=== PATIENT | female | born 1945 | race Caucasian/White ===

== ENCOUNTER 2018-03-23 07:20 | Day surgery (SDC) | payer MEDICARE ==
[2018-03-20 14:19] LABS: BASOPHILS % (AUTO) 0.6 % (0.0-5.0); EOSINOPHILS % (AUTO) 1.9 % (0.0-8.0); HEMATOCRIT 37.7 % (36-48); LYMPHOCYTES % (AUTO) 26.8 % (21.0-51.0); MEAN CORPUSCULAR HEMOGLOBIN 29.4 pg (27.0-33.0); MEAN CORPUSCULAR HGB CONC 33.8 g/dL (32.0-36.0); MONOCYTES % (AUTO) 8.7 % (3.0-13.0); PLATELET COUNT (AUTO) 247 K/uL (130-400); RED BLOOD CELL COUNT(AUTO) 4.33 MIL/uL (4.00-5.50); RED CELL DISTRIBUTION WIDTH 13.6 % (11.0-15.5); WHITE BLOOD COUNT (AUTO) 8.2 K/uL (4.8-10.8)
[2018-03-20 14:26] LABS: APPEARANCE,URINE CLOUDY (CLEAR); BILIRUBIN,URINE NEGATIVE (NEGATIVE); COLOR,URINE RED (YELLOW); GLUCOSE, URINE (UA) NEGATIVE (NEGATIVE); KETONES,URINE 5 mg/dL (NEGATIVE); LEUKOCYTE ESTERASE ,URINE SMALL (NEGATIVE); NITRATE,URINE NEGATIVE (NEGATIVE); OCCULT BLOOD,URINE LARGE (NEGATIVE); PROTEIN,URINE 100 (NEGATIVE); UROBILINOGEN,URINE 0.2 mg/dL (0.2-1.0)
[2018-03-20 14:30] LABS: CREATININE 1.2 mg/dL (0.5-1.5); POTASSIUM 3.7 mmol/L (3.5-5.1)
[2018-03-20 14:33] LABS: RBC,URINE TNTC /HPF (0-1)
[2018-03-20 14:34] LABS: BACTERIA,URINE Rare /HPF (None Seen); SQUAMOUS EPITHELIAL CELL,UR None Seen /HPF (0-2)
[2018-03-20 14:56] VITALS: BP 108/54
--- NOTE | 2018-03-21 12:08 | NUR ---
NOTE LATEST EKG HAS BEEN REVIEWED BY DR DURON , NO FURTHER ORDERS GIVEN
[2018-03-23] VITALS (18 sets, daily range): BP systolic 143–215; BP diastolic 74–107
[~2018-03-23] VITALS: Ht 167.6 cm; Wt 70.0 kg
[~2018-03-23 07:20] MED LIST: ASPI-555 PO; CARV6.25 PO; CHOL100044 PO; ENAL10TA PO; FLUT16H NASAL; GENTAMICIN 80 MG/NS 100 ML PB 100 ML IV SCH; ISOS30TA6 PO; LEVOFLOXACIN 500 MG/D5W 100 ML 100 ML IV SCH; LOVA20TA3 PO; SERT100T12 PO; UMEC1DIS IH
[2018-03-23] MEDS ORDERED: LACTATED RINGERS 1000ML 1,000 ML IV ONE (08:05)
[2018-03-23] MEDS ORDERED: LEVOFLOXACIN 500 MG/D5W 100 ML 100 ML ONE (08:05)
[2018-03-23] MEDS ORDERED: GENTAMICIN 80 MG/NS 100 ML PB 100 ML IV ONE (08:06)
[2018-03-23] MEDS ORDERED: GLYCOPYRROLATE 1 MG/5 ML SYRINGE ONE (08:24)
[2018-03-23] MEDS ORDERED: DEXAMETHASONE SOD PHOSPHATE 10MG/ML 1ML VIAL ONE (08:24)
[2018-03-23] MEDS ORDERED: MIDAZOLAM HCL 1 MG/ML 2ML VIAL ONE (08:24)
[2018-03-23] MEDS ORDERED: ONDANSETRON HCL 4 MG/2 ML VIAL ONE (08:24)
[2018-03-23] MEDS ORDERED: LIDOCAINE PF 2% 5ML ABBOJECT ONE ×2 (08:24→08:38)
[2018-03-23] MEDS ORDERED: NEOSTIGMINE 5MG/5ML SYR IV ONE (08:24)
[2018-03-23] MEDS ORDERED: ROCURONIUM 10MG/1ML SYR 10 MG/ML ML ONE (08:25)
[2018-03-23] MEDS ORDERED: PROPOFOL 10 MG/ML 20ML VIAL IV ONE (08:25)
[2018-03-23] MEDS ORDERED: FENTANYL CITRATE PF 50 MCG/1 ML 2ML VIAL ONE (08:25)
[2018-03-23] MEDS ORDERED: NITROGLYCERIN 1GM/1 INCH PACKET TD ONE (08:27)
[2018-03-23] MEDS ORDERED: METOPROLOL TARTRATE 1 MG/ML 5ML VIAL IV ONE (08:28)
--- NOTE | 2018-03-23 08:36 | NUR ---
VALUABLES: CLOTHING AND GLASSES GIVEN TO DAUGHTER REBECCA NASCIMENTO. NO OTHER VALUABLES BROUGHT TO HOSPITAL.
[2018-03-23] MEDS ORDERED: IOHEXOL-350 50ML VIAL IV ONE (08:53)
[2018-03-23] MEDS ORDERED: PHENYLEPHRINE HCL 10 MG/ML 1ML VIAL IV ONE (08:57)
[2018-03-23] MEDS ORDERED: HYDRALAZINE HCL 20 MG/ML VIAL ONE (09:48)
--- NOTE | 2018-03-23 10:40 | NUR ---
POSTOP received pt from [facility], s/p left ureteroscopy left stent placement left lithotripsy, opsite with string attached to mons-pubis dry and intact . pt /family instructed to keep intact, not to pull or remove at all. vs stable on arrival. pt awake and alert in bed, denies any pain or discomforts will continue to monitor.
[2018-03-23] MEDS ORDERED: HYDROCODONE/ACETAMINOPHEN 5/325 MG TAB PO PRN ×2 (11:15→11:30)
--- NOTE | 2018-03-23 11:23 | NUR ---
void pt got up to restroom and voided, small amount of bleeding noted to urine.
--- NOTE | 2018-03-23 11:24 | NUR ---
dc dc intructions given to pt /pt daughter with rx, instructed to f/u with dr. veliz and to keep string attached in place to mons-pubis area. not to pull at all. pt voided , denies any discomforts. also instructed to start cipro on tuesday, and other medications today. pt getting dress will be discharge once ready.
[2018-03-23] MEDS ORDERED: KETOROLAC TROMETHAMINE 15MG/ML IV PRN (11:30)
--- NOTE | 2018-03-23 11:45 | NUR ---
dc pt dc home via wc,no distress noted. denied any pain or discomforts.
== END 2018-03-23 11:45 | disposition home or self-care (01) ==
LOC: DAH 07:20
PROVIDERS: ATTEND Urology
DX: N20.1 Calculus of ureter (principal); I10 Essential (primary) hypertension; J44.9 Chronic obstructive pulmonary disease, unspecified; I48.91 Unspecified atrial fibrillation; Z98.890 Other specified postprocedural states; Z90.710 Acquired absence of both cervix and uterus; Z98.49 Cataract extraction status, unspecified eye; I21.3 ST elevation (STEMI) myocardial infarction of unspecified site
CPT/HCPCS: 36415; 52356; 71045; 76000; 80048; 81001; 85025; 87088; 96365; A4354; A4358; A4600; A4649; A4930; A6207; C1758; C1769; C2617; J0360; J1100; J1580; J1956; J2001 ×2; J2250; J2370; J2405; J2704; J2710; J3010; J3490 ×2; J7120 ×2; Q9967

== ENCOUNTER 2018-05-30 06:27 | Day surgery (SDC) | payer MEDICARE ==
[~2018-05-30] VITALS: Ht 170.2 cm; Wt 70.7 kg
[~2018-05-30 06:27] MED LIST changes: +FLUT1AER IH; -GENTAMICIN 80 MG/NS 100 ML PB 100 ML IV SCH; -LEVOFLOXACIN 500 MG/D5W 100 ML 100 ML IV SCH; +SODIUM CHLORIDE 0.9% 1000ML 1,000 ML IV ONE; -UMEC1DIS IH
[2018-05-30 07:07] VITALS: BP 186/83
[2018-05-30] MEDS ORDERED: PROPOFOL 10 MG/ML 20ML VIAL IV ONE (08:15)
[2018-05-30 08:44] VITALS: BP 127/89
[2018-05-30 08:49] VITALS: BP 128/56
[2018-05-30 08:54] VITALS: BP 131/53
[2018-05-30 08:59] VITALS: BP 135/63
[2018-05-30 09:05] VITALS: BP 144/67
== END 2018-05-30 09:17 | disposition home or self-care (01) ==
LOC: DAH 06:27 → ENDO 06:27
PROVIDERS: ATTEND Internal Medicine
DX: K57.30 Diverticulosis of large intestine without perforation or abscess without bleeding (principal); K31.7 Polyp of stomach and duodenum; K44.9 Diaphragmatic hernia without obstruction or gangrene; K22.8 Other specified diseases of esophagus; K29.50 Unspecified chronic gastritis without bleeding; E78.5 Hyperlipidemia, unspecified; I10 Essential (primary) hypertension; J44.9 Chronic obstructive pulmonary disease, unspecified; Z86.73 Personal history of transient ischemic attack (TIA), and cerebral infarction without residual deficits; F41.9 Anxiety disorder, unspecified; F32.9 Major depressive disorder, single episode, unspecified; M19.90 Unspecified osteoarthritis, unspecified site; Z98.890 Other specified postprocedural states; I21.3 ST elevation (STEMI) myocardial infarction of unspecified site; I48.91 Unspecified atrial fibrillation; Z79.899 Other long term (current) drug therapy; Z98.49 Cataract extraction status, unspecified eye; Z90.710 Acquired absence of both cervix and uterus; Z88.8 Allergy status to other drugs, medicaments and biological substances; K56.2 Volvulus
CPT/HCPCS: 43239; 45380; 88305; 93005; A4606; J2704; J7030; 43236

== ENCOUNTER → 2018-06-16 | Outpatient (CLI) | payer MEDICARE ==
[~2018-06-16] MED LIST changes: -SODIUM CHLORIDE 0.9% 1000ML 1,000 ML IV ONE
== END | disposition home or self-care (01) ==
LOC: RAH 08:42
PROVIDERS: ATTEND Internal Medicine Gastroenterology
DX: K57.30 Diverticulosis of large intestine without perforation or abscess without bleeding (principal)
CPT/HCPCS: 74270

== ENCOUNTER → 2021-09-30 | Outpatient (CLI) | payer MEDICARE ==
[~2021-09-30] MED LIST changes: -ASPI-555 PO; +ASPI-556 PO; -ENAL10TA PO; +ENAL10TA18 PO; -ISOS30TA6 PO; +ISOS30TA92 PO; +SERT-440 PO; -SERT100T12 PO
== END | disposition home or self-care (01) ==
LOC: RAH 15:24
PROVIDERS: ATTEND Family Medicine
DX: M25.562 Pain in left knee (principal); M25.561 Pain in right knee

== ENCOUNTER → 2024-05-23 | Outpatient (CLI) | payer MEDICARE ==
[~2024-05-23] MED LIST changes: +ASPI-1443 PO; -ASPI-556 PO; +CARV3.12 PO; -CARV6.25 PO; -CHOL100044 PO; +DOCU-116 PO; +ENAL-89 PO; -ENAL10TA18 PO; -FLUT16H NASAL; -FLUT1AER IH; -ISOS30TA92 PO; -LOVA20TA3 PO; +PANT40TA55 PO; +POLY17PO4 PO
--- NOTE | 2024-05-23 14:27 | HMCIMG ---
COLON-GASTROGRAFIN REASON: IRON DEFICIENCY ANEMIA; diverticulosis of large intestine w/o perforation. COMPARISON: None TECHNIQUE: Gastrografin enema study was performed. FINDINGS: There is no obstruction to the retrograde passage of Gastrografin from rectum through cecum. There is extensive diverticulosis. No definite constricting lesion is seen. Evaluation for mass lesion is limited with Gastrografin enema study. IMPRESSION: No obstruction. Diverticulosis.
== END | disposition home or self-care (01) ==
LOC: RAH 08:53
PROVIDERS: ATTEND Internal Medicine
DX: K57.30 Diverticulosis of large intestine without perforation or abscess without bleeding (principal); D50.9 Iron deficiency anemia, unspecified
CPT/HCPCS: 74270; Q9958

== ENCOUNTER 2024-06-26 17:39 | Emergency (ER) | payer MEDICARE ==
[~2024-06-26] VITALS: Ht 165.1 cm; Wt 68.5 kg
--- NOTE | 2024-06-26 17:55 | EKG ---
[facility] Test Date: 2024-06-26 Test Time: 17:52:44 Pat Name: JULIO ALEXIS Department: [facility] Room: Gender: F Store Person: [id number] 1945 Requested By: HAILE BELLO Order Number: [id number] Reading MD: Darwin Veloz Measurements Intervals [place] Rate: 76 P: 67 MS: 175 QRS: -45 QRSD: 144 T: 182 QT: 426 QTc: 481 Interpretive Statements Sinus rhythm Probable left atrial enlargement Right bundle branch block LVH with IVCD and secondary repol abnrm Compared to ECG 04/21/2024 19:16:56 Intraventricular conduction delay now present Atrial premature complex(es) no longer present Electronically Signed On 06-26-2024 21:13:45 CDT by Darwin Veloz Please click the below link to view image of tracing.
[2024-06-26 18:28] LABS: BASOPHILS # (AUTO) 0.06 K/uL (0.00-0.20); BASOPHILS % (AUTO) 0.9 % (0.0-5.0); EOSINOPHILS # (AUTO) 0.17 K/uL (0.00-0.70); EOSINOPHILS % (AUTO) 2.5 % (0.0-8.0); HEMATOCRIT 29.3 % (36-48); IMMATURE GRANULOCYTE ABSOLUTE 0.01 K/uL (0-1); LYMPHOCYTES # (AUTO) 1.5 K/uL (1.0-4.8); LYMPHOCYTES % (AUTO) 22.4 % (21.0-51.0); MEAN CORPUSCULAR HEMOGLOBIN 21.7 pg (27.0-33.0); MEAN CORPUSCULAR VOLUME 77.5 fL (79-99); MONOCYTES # (AUTO) 0.7 K/uL (0.1-1.0); MONOCYTES % (AUTO) 10.9 % (3.0-13.0); NEUTROPHILS # (AUTO) 4.2 K/uL (1.8-7.7); NEUTROPHILS % (AUTO) 63.2 % (40.0-77.0); PLATELET COUNT (AUTO) 243 K/uL (130-400); RED BLOOD CELL COUNT(AUTO) 3.78 MIL/uL (4.00-5.50); RED CELL DISTRIBUTION WIDTH 18.9 % (11.0-15.5); WHITE BLOOD COUNT (AUTO) 6.7 K/uL (4.8-10.8)
--- NOTE | 2024-06-26 18:28 | HMCIMG ---
PORTABLE CHEST RADIOGRAPH INDICATION: sob COMPARISON: 04/19/2024 FINDINGS: Heart is enlarged. The pulmonary vascularity and akosua appear normal. Subcentimeter left upper lung calcified granulomas. No significant pleural effusion noted. No pneumothorax detected. IMPRESSION: Cardiomegaly without pulmonary vascular congestion. If patient's symptoms continue to persist, further evaluation with CT imaging is advised.
[2024-06-26 19:08] LABS: CREATININE 1.1 mg/dL (0.5-1.0); POTASSIUM 3.9 mmol/L (3.5-5.1)
[2024-06-26 19:22] LABS: B-TYPE NATRIURETIC PEPTIDE 326 pg/mL (0-100)
--- NOTE | 2024-06-26 19:31 | ERN ---
General Chief Complaint: Hypotension Stated Complaint: LOW BLOOD PRESSURE Time Seen by MD: 17:41 Time Seen by Midlevel: 17:41 Source: patient History of Present Illness Initial Comments The patient was an 78-year-old female with a past medical history of atrial fibrillation, COPD, hypertension, and PR presenting to the emergency department for evaluation of generalized body weakness and low blood pressure at home. According to the patient her blood pressure was 100/43 while she was laying down in bed. She does report having a history of anemia. She states that for the last couple of days she feels like she was going to pass out. Patient reports being O2 dependent on 2 L because of her past medical history of COPD. Allergies: Coded Allergies: cefaclor (Unverified Allergy, Intermediate, HIVES, 03/20/18) erythromycin base (Unverified Allergy, Intermediate, 03/20/18) Home Meds Active Scripts Pantoprazole Sodium (Protonix) 40 Mg Ectab, 1 TAB PO DAILY for 30 Days, #30 TAB 0 Refills Prov:BINU WEISS 04/22/24 Docusate Sodium (Colace) 100 Mg Capsule, 1 CAP PO BID PRN for CONSTIPATION for 15 Days, #30 CAP 0 Refills Prov:BINU WEISS 04/22/24 Polyethylene Glycol 3350 (Miralax) 17 Gram Powd.pack, 1 PACKET PO DAILY for constipation, #30 PACKET 0 Refills dissolve in water Prov:BINU WEISS 04/22/24 Reported Medications Carvedilol (Carvedilol) 3.125 Mg Tablet, 1 TAB PO BID for 30 Days, #60 TAB 0 Refills 04/19/24 Enalapril Maleate (Enalapril Maleate) 10 Mg Tablet, 1 TAB PO DAILY for 30 Days, #30 TAB 0 Refills 04/19/24 Aspirin (Aspirin EC) 81 Mg Tablet.dr, 81 MG PO DAILY, TAB 04/19/24 Sertraline HCl (Sertraline HCl) 100 Mg Tablet, 1 TAB PO DAILY for 30 Days, #30 TAB 0 Refills 04/19/24 Past Medical History Past Medical History: A-Fib, COPD, Hypertension, PR, TIA Past Surgical History: Hysterectomy, Tonsillectomy, Other Surgical History Other: CARPAL TUNNEL, EYE SURGERY ROS Dictation CONSTITUTIONAL: Negative except for HPI HEAD/FACE: Negative except for HPI EENT: Negative except for HPI RESPIRATORY: Negative except for HPI GASTROINTESTINAL/ABDOMINAL: Negative except for HPI GENITOURINARY: Negative except for HPI MUSCULOSKELETAL: Negative except for HPI INTEGUMENTARY: Negative except for HPI NEUROLOGICAL/PSYCH: Negative except for HPI HEMATOLOGIC/LYMPHATIC: Negative except for HPI All Systems Negative, Except as noted above. 13 point review of systems assessed and all negative except for above. Physical Exam Physical Exam Dictation Vital Signs reviewed General Appearance: Alert, oriented x 3, no acute distress, well developed, nourished. Head and Face: non-traumatic. Eyes: PERRL, pink conjunctivas, eyelid no trauma, anterior chamber with arcus senilis. Ears: Pinnas intact and no signs of trauma or erythema ear canals clear and no discharge TM no erythema Nose: No discharge, no bleeding. Oropharynx: Mouth normal, tongue pink, pharynx clear,no erythema, tonsils no exudates, no abscesses noted, mucous membrane moist Neck: Supple, non-tender, no thyromegaly, no masses, no JVD, no bruits Breast:Deferred Chest:No tenderness, no crepitus, no paradoxical movement, no retractions Lungs:Clear, well-ventilated, symmetric, no rales, no wheezing, no rhonchi, no stridor, good breath sounds bilaterally Heart: Regular rate, regular rhythm, no murmur, no gallops Vascular: no peripheral edema, Abdomen: Soft, positive bowel sounds, nondistended, no guarding, nontender, no rebound, no masses no hepatomegaly, no splenomegaly, no Jackson's sign, no hernias. Rectal: Deferred Genital: Deferred Neurological: Normal speech, motor function intact, sensory function intact Musculoskeletal: Neck nontender, full range of motion, back nontender, full range of motion, Extremities: nontender, full range of motion Skin: Color pink, dry, no turgor, no rash, no lacerations, no abrasions, no contusions. Lymphatic: Deferred Results Laboratory and Microbiology Lab and Micro Result Laboratory Tests Test 06/26/24 18:14 06/26/24 22:03 White Blood Count 6.7 K/uL (4.8-10.8) Red Blood Count 3.78 MIL/uL (4.00-5.50) L Hemoglobin 8.2 g/dL (12.0-16.0) L Hematocrit 29.3 % (36-48) L Mean Corpuscular Volume 77.5 fL (79-99) L Mean Corpuscular Hemoglobin 21.7 pg (27.0-33.0) L Mean Corpuscular Hemoglobin Concent 28.0 g/dL (32.0-36.0) L Red Cell Distribution Width 18.9 % (11.0-15.5) H Platelet Count 243 K/uL (130-400) Mean Platelet Volume 9.1 fL (7.5-10.5) Immature Granulocyte % (Auto) 0.1 % (0-1) Neutrophils (%) (Auto) 63.2 % (40.0-77.0) Lymphocytes (%) (Auto) 22.4 % (21.0-51.0) Monocytes (%) (Auto) 10.9 % (3.0-13.0) Eosinophils (%) (Auto) 2.5 % (0.0-8.0) Basophils (%) (Auto) 0.9 % (0.0-5.0) Neutrophils # (Auto) 4.2 K/uL (1.8-7.7) Lymphocytes # (Auto) 1.5 K/uL (1.0-4.8) Monocytes # (Auto) 0.7 K/uL (0.1-1.0) Eosinophils # (Auto) 0.17 K/uL (0.00-0.70) Basophils # (Auto) 0.06 K/uL (0.00-0.20) Absolute Immature Granulocyte (auto 0.01 K/uL (0-1) Nucleated Red Blood Cells 0.0 % (0.0-0.19) Red Blood Cell Morphology See comments Sodium Level 139 mmol/L (136-145) Potassium Level 3.9 mmol/L (3.5-5.1) Chloride Level 102 mmol/L (101-111) Carbon Dioxide Level 34 mmol/L (21-32) H Blood Urea Nitrogen 17 mg/dL (7-18) Creatinine 1.1 mg/dL (0.5-1.0) H Glomerular Filtration Rate Calc 51 mL/min (>90) Random Glucose 93 mg/dL (70-105) Total Calcium 8.9 mg/dL (8.5-10.1) Magnesium Level 2.00 mg/dL (1.80-2.40) Total Creatine Kinase 67 U/L (21-232) Troponin I High Sensitivity 65.0 ng/L (4-50) *H 62 ng/L (4-50) *H B-Type Natriuretic Peptide 326 pg/mL (0-100) H Labs Reviewed?: Yes MDM MDM: The patient was an 78-year-old female with a past medical history of atrial fibrillation, COPD, hypertension, and PR presenting to the emergency department for evaluation of generalized body weakness and low blood pressure at home. According to the patient her blood pressure was 100/43 while she was laying down in bed. She does report having a history of anemia. She states that for the last couple of days she feels like she was going to pass out. Patient reports being O2 dependent on 2 L because of her past medical history of COPD. Initial vital signs are remarkable for a temperature of 98.4 with a blood pressure of 119/60. O2 saturation is 97% on room air. ated. On physical examination the patient was on O2 on 2 L but states this is baseline for her. The remainder of her physical examination is reassuring. Cardiac workup was initiated. CBC shows no leukocytosis. There is chronic anemia with a hemoglobin of 8.2. When compared to previous hemoglobins her hemoglobin appears to be stable. Patient denies any rectal bleeding or vaginal bleeding at this time. Platelet count is normal at 243. Chemistries are unremarkable. Initial troponin is elevated at 65. However, when comparing to previous troponin it appears the patient's troponin is always elevated. On arrival the patient is specifically denied any chest pain. During her 5 hours stay in the emergency department she never reported chest pain, palpitations, or chest pressure. My initial plan was to admit the patient for further observation and management however the case was discussed with benchmark service who believes the patient does not meet criteria for admission. He states the troponin is chronically elevated and believes this is from the chronic anemia. I proceeded to get a repeat troponin which appears to be trending down. The patient was re-evaluated and states she was asymptomatic. She feels comfortable going home and would prefer to be discharged at this time. Differential diagnosis: Acute coronary syndrome, dehydration, electrolyte abnormality, anemia Rationale: Tests considered and ordered secondary to shared decision making in clude: Previous outside records reviewed: Old ER visits. Risk of complication and/or morbidity or mortality of patient management: None Medications-Per medication reconciliation Need for hospitalization: Patient does meet criteria for hospitalization. Need for emergency major/minor surgery: No There are no social concerns with this patient. Prescription drug management Prescriptions will include symptomatic care Patient's prior external medical records from other ER visits were reviewed by me as indicated. Prior testing and results from previous visits were reviewed. Prior tests were taken into account with medical decision making and resource utilization, independent historian/historians were used to obtain complete medical history. I independently interpreted the test that were performed, results were reviewed by me and considered findings on radiology if ordered. Medical management and examination interpretation discussions were had by me with other qualified healthcare professionals as indicated for the patient's care. ED Course Orders Procedure Category Date Status Time 12 Lead Ekg Tracing- EKG 06/26/24 Resulted Technical 17:45 Cbc With Differential LAB 06/26/24 Complete 17:45 Basic Metabolic Panel LAB 06/26/24 Complete 17:45 B-Type Natriuretic LAB 06/26/24 Complete Peptide 17:45 Magnesium LAB 06/26/24 Complete 17:45 Urinalysis Profile LAB 06/26/24 Logged 17:45 Chest 1vw RAD 06/26/24 Resulted 17:45 Type And Screen BBK 06/26/24 Complete 17:45 Cardiac Panel LAB 06/26/24 Complete 17:45 Troponin I High LAB 06/26/24 Complete Sensitivity 21:36 Vital Signs Date Time Temp Pulse Resp B/P (MAP) Pulse Ox O2 Delivery O2 Flow Rate FiO2 06/26/24 21:35 98.1 72 19 172/64 98 Nasal Cannula* 2 28 06/26/24 20:16 98.4 80 18 119/60 96 Nasal Cannula* 2 28 06/26/24 17:40 98.4 79 18 119/60 97 Room Air DX & DISP Disposition: Discharge Departure Impression: Primary Impression: Chronic anemia Additional Impression: Elevated troponin level not due myocardial infarction Condition: Stable Additional Instructions: Your blood work today is stable. Your initial troponin was elevated however your repeat troponin is trending down. This may be related to your chronic anemia. Your EKG does not show any evidence of a heart attack. Please follow up with your primary care doctor in 2-3 days for repeat evaluation. Referrals: MARY ZUNIGA MD (PCP) Time of Disposition: 23:34 I have reviewed the case, and I agree with, Diagnosis and Plan I performed the substantive portion of the visit. I have reviewed and personally made and approve the management plan that is documented in the note by myself or the ABY. I acknowledge for responsibility for the patient's management plan. HAILE BELLO Jun 26, 2024 19:31
--- NOTE | 2024-06-26 21:22 | NUR ---
PT CARE ASSUMED AT THIS TIME
[2024-06-26 23:48] VITALS: BP 171/62; PULSE 67; RESP 18; TEMP 98.1; O2SAT 97
== END 2024-06-26 23:58 | disposition home or self-care (01) ==
LOC: EDH 17:39
DX: D64.9 Anemia, unspecified (principal); R79.89 Other specified abnormal findings of blood chemistry; I25.2 Old myocardial infarction; I48.91 Unspecified atrial fibrillation; J44.9 Chronic obstructive pulmonary disease, unspecified; Z79.82 Long term (current) use of aspirin; Z79.899 Other long term (current) drug therapy; Z86.73 Personal history of transient ischemic attack (TIA), and cerebral infarction without residual deficits; Z88.1 Allergy status to other antibiotic agents; Z90.710 Acquired absence of both cervix and uterus; Z99.81 Dependence on supplemental oxygen
CPT/HCPCS: 36415; 71045; 80048; 82550; 83735; 83880; 84484; 85025; 86850; 86900; 86901; 93005; 99285

== ENCOUNTER → 2024-10-12 | Emergency (ER) | payer MEDICARE ==
[~2024-10-12] VITALS: Ht 165.1 cm; Wt 64.9 kg
[~2024-10-12] MED LIST changes: -DOCU-116 PO; +LEVO25CA5 PO; -PANT40TA55 PO; -POLY17PO4 PO
--- NOTE | 2024-10-12 15:28 | ERN ---
ED Note History of Present Illness Stated Complaint: WOUND CHECK Chief Complaint: Wound Check Time Seen by MD: 15:21 Dictation: PATIENT IS AN 79-YEAR-OLD FEMALE HERE COMPLAINING OF SEROSANGUINEOUS DRAINAGE FROM HER INCISION SITE TO HER LOWER ABDOMEN. SHE IS STATUS POST A COLON RESECTION FOR COLON MASS BY DR. WALTER GARRETT LAST WEEK. SHE DENIES FEVER CHILLS NAUSEA VOMITING. DRESSING IS IN PLACE WITH DRIED DRAINAGE NOTED EXTERNALLY. Allergies: Coded Allergies: cefaclor (Unverified Allergy, Intermediate, HIVES, 03/20/18) erythromycin base (Unverified Allergy, Intermediate, 03/20/18) Home Meds Reported Medications Levothyroxine Sodium (Levothyroxine) 25 Mcg Capsule, 1 CAP PO DAILY for 30 Days, #30 CAP 0 Refills 09/27/24 Carvedilol (Carvedilol) 3.125 Mg Tablet, 1 TAB PO BID for 30 Days, #60 TAB 0 Refills 04/19/24 Enalapril Maleate (Enalapril Maleate) 10 Mg Tablet, 1 TAB PO DAILY for 30 Days, #30 TAB 0 Refills 04/19/24 Aspirin (Aspirin EC) 81 Mg Tablet.dr, 81 MG PO DAILY, TAB 04/19/24 Sertraline HCl (Sertraline HCl) 100 Mg Tablet, 1 TAB PO DAILY for 30 Days, #30 TAB 0 Refills 04/19/24 Past Medical History Past Medical History: Cancer, Diverticulitis Surgical History: Other Surgical History Other: COLON RESECTION History: Not Applicable RN Note Reviewed/Agreed w/PFSH: Yes Review of System Dictation CONSTITUTIONAL: NEGATIVE EXCEPT FOR HPI HEAD/FACE: NEGATIVE EXCEPT FOR HPI EENT: NEGATIVE EXCEPT FOR HPI RESPIRATORY: NEGATIVE EXCEPT FOR HPI GASTROINTESTINAL/ABDOMINAL: NEGATIVE EXCEPT FOR HPI ABDOMINAL INCISION DRAINAGE GENITOURINARY: NEGATIVE EXCEPT FOR HPI MUSCULOSKELETAL: NEGATIVE EXCEPT FOR HPI INTEGUMENTARY: NEGATIVE EXCEPT FOR HPI NEUROLOGICAL/PSYCH: NEGATIVE EXCEPT FOR HPI HEMATOLOGIC/LYMPHATIC: NEGATIVE EXCEPT FOR HPI ALL SYSTEMS NEGATIVE, EXCEPT NOTED ABOVE. 13 POINT REVIEW OF SYSTEMS ASSESSED AND ALL NEGATIVE EXCEPT FOR ABOVE. Initial Vital Sign VS Vital Signs Date Time Temp Pulse Resp B/P (MAP) Pulse Ox O2 Delivery O2 Flow Rate FiO2 10/12/24 15:21 98.2 63 19 103/78 99 Nasal Cannula 2.0 10/12/24 16:10 28 Physical Exam Dictation VITAL SIGNS REVIEWED GENERAL APPEARANCE: ALERT, ORIENTED X 3, NO ACUTE DISTRESS, WELL DEVELOPED, NOURISHED. NO PAIN AT THIS TIME NO FEVER HEAD AND FACE: NON-TRAUMATIC. EYES: PERRL, PINK CONJUNCTIVAS, EYELID NO TRAUMA, ANTERIOR CHAMBER WITH ARCUS SENILIS. EARS: PINNAS INTACT AND NO SIGNS OF TRAUMA OR ERYTHEMA EAR CANALS CLEAR AND NO DISCHARGE TM NO ERYTHEMA NOSE: NO DISCHARGE, NO BLEEDING. OROPHARYNX: MOUTH NORMAL, TONGUE PINK, PHARYNX CLEAR,NO ERYTHEMA, TONSILS NO EXUDATES, NO ABSCESSES NOTED, MUCOUS MEMBRANE MOIST NECK: SUPPLE, NON-TENDER, NO THYROMEGALY, NO MASSES, NO JVD, NO BRUITS BREAST:DEFERRED CHEST:NO TENDERNESS, NO CREPITUS, NO PARADOXICAL MOVEMENT, NO RETRACTIONS LUNGS:CLEAR, WELL-VENTILATED, SYMMETRIC, NO RALES, NO WHEEZING, NO RHONCHI, NO STRIDOR, GOOD BREATH SOUNDS BILATERALLY HEART: REGULAR RATE, REGULAR RHYTHM, NO MURMUR, NO GALLOPS VASCULAR: NO PERIPHERAL EDEMA, ABDOMEN: SOFT, POSITIVE BOWEL SOUNDS, NONDISTENDED, NO GUARDING, NONTENDER, NO REBOUND, NO MASSES NO HEPATOMEGALY, NO SPLENOMEGALY, NO SAWANT'S SIGN, NO HERNIAS. 4 GRANULATING INCISIONS TO TRANSVERSE LOWER ABDOMEN. DISTAL INCISION WITH SCANT SEROSANGUINEOUS DRAINAGE NO INDURATION NO ERYTHEMA NO SWELLING NO FLUCTUANCE RECTAL: DEFERRED GENITAL: DEFERRED NEUROLOGICAL: NORMAL SPEECH, MOTOR FUNCTION INTACT, SENSORY FUNCTION INTACT MUSCULOSKELETAL: NECK NONTENDER, FULL RANGE OF MOTION, BACK NONTENDER, FULL RANGE OF MOTION, EXTREMITIES: NONTENDER, FULL RANGE OF MOTION SKIN: COLOR PINK, DRY, NO TURGOR, NO RASH, NO LACERATIONS, NO ABRASIONS, NO CONTUSIONS. LYMPHATIC: DEFERRED Results (Laboratory/Radiology) Labs Reviewed?: Yes ED Course ED Course Vital Signs Date Time Temp Pulse Resp B/P (MAP) Pulse Ox O2 Delivery O2 Flow Rate FiO2 10/12/24 16:10 97.9 69 17 153/91 100 Nasal Cannula* 2 28 10/12/24 15:21 98.2 63 19 103/78 99 Nasal Cannula 2.0 1715/SPOKE WITH DR. WALTER GARRETT COLORECTAL SURGERY REGARDING PATIENT. HE IS AWARE THE PATIENT IS AFEBRILE THERE IS NO DRAINAGE AT THIS TIME NO FEVER NO CHILLS NO ABDOMINAL PAIN NO FLUCTUANCE NO INDURATION. HE SAID OKAY TO DISCHARGED HOME AND HAVE PATIENT FOLLOW UP WITH HIM IN HIS OFFICE NEXT WEEK. THIS INFORMATION WAS RELAYED TO THE PATIENT AND HER DAUGHTER AT BEDSIDE. Medical Decision Making MDM MEDICAL DISCHARGE MAKING BASED ON PHYSICAL EXAMINATION, EVALUATION OF VITAL SIGNS AND CONSULTATION WITH COLORECTAL SURGEON PATIENT WILL BE DISCHARGED HOME AFTER EXAMINATION TO DISCUSSION WITH THE SURGEON SHE IS AWARE TO FOLLOW UP WITH HIM NEXT WEEK IN THE CLINIC RETURN TO THE EMERGENCY ROOM IF FEVER CHILLS NAUSEA VOMITING OR ACUTE ABDOMINAL PAIN DX & DISP Disposition: Discharge Departure Impression: Primary Impression: Surgical site reaction Additional Impression: Status post colon resection Condition: Stable Additional Instructions: FOLLOW-UP WITH PRIMARY CARE PROVIDER IN 1 TO 2 DAYS. TAKE MEDICATIONS DIRECTED HERE IN THE EMERGENCY ROOM. OKAY TO CONTINUE HOME MEDICATIONS UNLESS OTHERWISE DISCUSSED DURING YOUR VISIT IN THE EMERGENCY ROOM TODAY. RETURN TO YOUR NEAREST EMERGENCY ROOM IF SYMPTOMS WORSEN OR IF THERE IS NO IMPROVEMENT. CALL 911 IF YOU NEED IMMEDIATE ASSISTANCE. TAKE TYLENOL OR MOTRIN [id number] NEEDED AND IF NO CONTRAINDICATIONS ARE PRESENT. INCREASE ORAL HYDRATION. A WOUND CULTURE OR URINE CULTURE WAS ORDERED HERE IN THE EMERGENCY ROOM DEPARTMENT PLEASE FOLLOW-UP WITH PRIMARY CARE PROVIDER AND ADVISE THEM TO GET REPEAT PORTS FROM OUR FACILITY. IF YOU HAD ANY NAYA WRAP/SPLINTS THAT WERE APPLIED HERE, PLEASE DO NOT REMOVE THEM UNTIL YOU SEE YOUR PRIMARY CARE OR SPECIALTY. FOLLOW UP WITH THE COLORECTAL SURGEON NEXT WEEK IN HIS OFFICE, CALL FOR AN APPOINTMENT ON TUESDAY. KEEP COVERED AND NO LIFTING AND FOLLOW ALL INSTRUCTIONS FROM YOUR SURGEON UNTIL YOUR CLEARED BY HIM NEXT WEEK. RETURN TO THE EMERGENCY ROOM IF FEVER CHILLS NAUSEA VOMITING OR SEVERE ABDOMINAL PAIN. Referrals: MARY ZUNIGA MD (PCP) WALTER GARRETT MD Time of Disposition: 17:24 I have reviewed the case, and I agree with, Diagnosis and Plan JAMES KHANNA NP Oct 12, 2024 15:28
[2024-10-12 16:10] VITALS: TEMP 97.8
[2024-10-12 17:49] VITALS: BP 158/63; PULSE 79; RESP 16; O2SAT 97
== END ==
LOC: EDH 15:20
DX: L76.82 Other postprocedural complications of skin and subcutaneous tissue (principal); Z79.82 Long term (current) use of aspirin; Z79.890 Hormone replacement therapy; Z79.899 Other long term (current) drug therapy; Z88.1 Allergy status to other antibiotic agents; Z90.49 Acquired absence of other specified parts of digestive tract
CPT/HCPCS: 99282